=== PATIENT | male | born 1990 | race American Indian/Alaskan Native ===

== ENCOUNTER 2019-04-26 18:35 | Emergency (ER) | payer SELFPAY ==
[2019-04-26 19:29] VITALS: BP 140/84
--- NOTE | 2019-04-26 21:54 | Emergency Department Report ---
ED General Adult HPI - General Chief complaint: Back Pain/Injury Stated complaint: BACK PAIN EXTREME Time Seen by Provider: 04/26/19 20:33 Source: patient Mode of arrival: Ambulatory Limitations: No Limitations - History of Present Illness Initial comments: Patient is a 28-year-old male presents emergency room with complaints of lower back pain that began 2 to 3 weeks ago. He states approximately 2 weeks ago he began having tingling while urinating and pain in the groin. 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 He states that he took Advil [id number] without much relief. He denies any penile discharge, testicular pain or edema, hematuria, nausea, vomiting, diarrhea, fever. He denies any fall or injury. He denies any numbness, weakness, bowel or bladder incontinence. He denies any past medical history. He denies any allergies to medications. - Related Data Previous Rx's Medication Instructions Recorded Last Taken Type Cyclobenzaprine [Flexeril] 10 mg PO QHS PRN #10 tablet 04/26/19 Unknown Rx Naproxen [EC-Naprosyn] 500 mg PO BID PRN #14 tablet. 04/26/19 Unknown Rx Allergies Allergy/AdvReac Type Severity Reaction Status Date / Time No Known Allergies Allergy Unverified 06/12/13 19:51 ED Review of Systems ROS: Stated complaint: BACK PAIN EXTREME Other details as noted in HPI Comment: All other systems reviewed and negative ED Past Medical Hx - Past Medical History Previous Medical History?: No - Surgical History Past Surgical History?: No - Social History Smoking Status: Current Every Day Smoker Substance Use Type: Alcohol - Medications Home Medications: Home Medications Medication Instructions Recorded Confirmed Last Taken Type Cyclobenzaprine [Flexeril] 10 mg PO QHS PRN #10 tablet 04/26/19 Unknown Rx Naproxen [EC-Naprosyn] 500 mg PO BID PRN #14 tablet. 04/26/19 Unknown Rx ED Physical Exam - General Limitations: No Limitations General appearance: alert, in no apparent distress - Head Head exam: Present: atraumatic, normocephalic - Eye Eye exam: Present: normal appearance - ENT ENT exam: Present: mucous membranes moist - Neck Neck exam: Present: normal inspection, full ROM. Absent: tenderness - Respiratory Respiratory exam: Present: normal lung sounds bilaterally. Absent: respiratory distress, wheezes, rales, rhonchi, stridor, chest wall tenderness, accessory muscle use, decreased breath sounds, prolonged expiratory - Cardiovascular Cardiovascular Exam: Present: regular rate, normal rhythm, normal heart sounds. 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 Absent: testicular tenderness, urethral discharge, scrotal swelling External exam: Present: normal external exam. Absent: erythema, swelling, lesions, lacerations, ecchymosis, bleeding - Back Exam Back exam: Present: normal inspection, full ROM. Absent: CVA tenderness (R), CVA tenderness (L), paraspinal tenderness, vertebral tenderness - Neurological Exam Neurological exam: Present: alert, oriented X3 - Psychiatric Psychiatric exam: Present: normal affect, normal mood - Skin Skin exam: Present: warm, dry, intact ED Course Vital Signs 04/26/19 19:26 Temperature 98.1 F Pulse Rate 94 H Respiratory 18 Rate Blood Pressure 140/84 O2 Sat by Pulse 98 Oximetry ED Medical Decision Making - Lab Data Lab Results 04/26/19 Range/Units 22:08 Urine Color Yellow (Yellow) Urine Turbidity Clear (Clear) Urine pH 6.0 (5.0-7.0) Ur Specific [place] 1.010 (1.003-1.030) Urine Protein <15 mg/dl (Negative) mg/dL Urine Glucose (UA) Neg (Negative) mg/dL Urine Ketones Neg (Negative) mg/dL Urine Blood Neg (Negative) Urine Nitrite Neg (Negative) Urine Bilirubin Neg (Negative) Urine Urobilinogen 4.0 (<2.0) mg/dL Ur Leukocyte Esterase Tr (Negative) Urine WBC (Auto) 5.0 (0.0-6.0) /HPF Urine RBC (Auto) 1.0 (0.0-6.0) /HPF - Medical Decision Making Patient is a 28-year-old male presents emergency room with complaints of lower back pain that began 2 to 3 weeks ago. He states approximately 2 weeks ago he began having tingling while urinating and pain in the groin. 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 He states that he took Advil [id number] without much relief. He denies any penile discharge, testicular pain or edema, hematuria, nausea, vomiting, diarrhea, fever. He denies any fall or injury. He denies any numbness, weakness, bowel or bladder incontinence. He denies any past medical history. He denies any allergies to medications. VSS. 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 pt does not have red flag warning signs of back pain. most consistent with muscle strain. UA with trace leukocyte esterase otherwise stable. G/C sent. Treated prophylactically for G/C with ceftriaxone and azithromycin. No signs of epididymitis, orchitis, testicular torsion. pt given prescription for naproxen and flexeril for back strain. advise pt to please take medication as prescribed as needed. Do not drive or operate heavy machinery while taking muscle relaxer. May use ice pack, heating pad, rest, Epsom salt bath. Please go to medical records in 1 week for results of your test but you have been treated for these today. Please have partner tested and treated as well. Avoid sexual intercourse for 10 days. Please go to the health department for full STD panel. Follow-up with a primary care doctor. Return to the emergency room for any new or worsening symptoms. - Differential Diagnosis STD, orchitis, epididymitis, testicular torsion, strain, sprain, DDD Critical care attestation.: If time is entered above; I have spent that time in minutes in the direct care of this critically ill patient, excluding procedure time. ED Disposition Clinical Impression: Dysuria Low back strain Qualifiers: Encounter type: initial encounter Qualified Code(s): S39.012A - Strain of muscle, fascia and tendon of lower back, initial encounter Disposition: TO HOME OR SELFCARE Is pt being admited?: No Does the pt Need Aspirin: No Condition: Stable Instructions: Sexually Transmitted Diseases (ED), Safe Sex (ED), Muscle Strain (ED), Dysuria (ED) Additional Instructions: Please take medication as prescribed as needed. Do not drive or operate heavy machinery while taking muscle relaxer. May use ice pack, heating pad, rest, Epsom salt bath. Please go to medical records in 1 week for results of your test but you have been treated for these today. Please have partner tested and treated as well. Avoid sexual intercourse for 10 days. Please go to the health department for full STD panel. Follow-up with a primary care doctor. Return to the emergency room for any new or worsening symptoms. Prescriptions: Cyclobenzaprine [Flexeril] 10 mg PO QHS PRN #10 tablet PRN Reason: Muscle Spasm Naproxen [EC-Naprosyn] 500 mg PO BID PRN #14 tablet.dr LOBATO Reason: pain Referrals: LOREE SHEIKH MD [Staff Physician] - 3-5 Days [facility] [Outside] - 3-5 Days [facility] [Outside] - 3-5 Days Time of Disposition: 23:16 Print Language: SAMI
[2019-04-26 22:47] LABS: Bilirubin,Urine NEG (Negative); Blood,Urine NEG (Negative); Color,Urine Yellow (Yellow); Protein,Urine <15 mg/dL mg/dL (Negative)
[2019-04-26] MEDS: AZITHROMYCIN 250 MG TAB PO ONE (23:32)
[2019-04-26] MEDS: LIDOCAINE-MPF (1%) 10 MG/1 ML VIAL 5 ML INFILTRATI ONE (23:32)
== END 2019-04-27 00:12 | disposition home or self-care (01) ==
LOC: ED 18:35
DX: S39.012A Strain of muscle, fascia and tendon of lower back, initial encounter (principal); R30.0 Dysuria; F17.200 Nicotine dependence, unspecified, uncomplicated; Z79.899 Other long term (current) drug therapy; X58.XXXA Exposure to other specified factors, initial encounter; Y93.89 Activity, other specified; Y92.89 Other specified places as the place of occurrence of the external cause; Y99.8 Other external cause status
CPT/HCPCS: 81001; 87591; 96372; 99283; J0696